=== PATIENT | female | born 1990 | race Asian ===

== ENCOUNTER 2021-01-10 18:53 | Emergency (ER) | payer OTHER ==
[~2021-01-10] VITALS: Ht 172.7 cm; Wt 96.3 kg
[~2021-01-10 18:53] MED LIST: HYDR-3237 PO; IBUP-1222 PO; OXYC1TAB12 PO; PREN1TAB56 PO; SENN-52 PO
--- NOTE | 2021-01-10 20:17 | NUR ---
pt not in lobby when called to room
--- NOTE | 2021-01-10 20:17 | NUR ---
pt to room from lobby
--- NOTE | 2021-01-10 20:46 | NUR ---
pt to room, found
[2021-01-10 21:19] LABS: MICROSCOPIC NOT IND
[2021-01-10] MEDS ORDERED: MAALOX/HYOSCYAMINE/LIDOCAINE 45 ML BTL ONE (21:35)
[2021-01-10 21:43] LABS: BASOPHILS % (AUTO) 0 % (0-1); EOSINOPHILS % (AUTO) 2 % (1-7); LYMPHOCYTES % (AUTO) 17 % (22-44); MEAN CORPUSCULAR HEMOGLOBIN 30.2 pg (27.0-34.8); MEAN CORPUSCULAR HGB CONC 34.1 g/dL (32.4-35.8); MEAN PLATELET VOLUME 8.3 fL (7.4-10.4); MONOCYTES % (AUTO) 8 % (2-9); NEUTROPHILS % (AUTO) 73 % (42-75); PLATELET COUNT 279 x10^3/uL (130-400); RED CELL DISTRIBUTION WIDTH 13.2 % (9.6-15.2)
[2021-01-10 21:52] VITALS: BP 111/82
[2021-01-10 21:53] LABS: ALANINE AMINOTRANSFERASE 27 U/L (12-78); ALBUMIN 3.3 g/dL (3.4-5.0); ANION GAP 7 mmol/L (5-15); CALCIUM 8.6 mg/dL (8.5-10.1); CHLORIDE 102 mmol/L (98-107); CREATININE 0.65 mg/dL (0.55-1.02)
[2021-01-10 21:57] LABS: ALKALINE PHOSPHATASE 69 U/L (45-117); BILIRUBIN,TOTAL 0.5 mg/dL (0.2-1.0); TOTAL PROTEIN 7.9 g/dL (6.4-8.2)
[2021-01-10] MEDS ORDERED: MAALOX/HYOSCYAMINE/LIDOCAINE 45 ML BTL PO ONE (22:00)
== END 2021-01-10 22:54 | disposition home or self-care (01) ==
LOC: ED 19:00
DX: K29.00 Acute gastritis without bleeding (principal); R53.1 Weakness
CPT/HCPCS: 36415; 80053; 81003; 83690; 84703; 85025; 99283